=== PATIENT | female | born 1995 | race Caucasian/White ===

== ENCOUNTER 2018-09-22 09:03 | Day surgery (SDC) | payer BC, OTHER ==
[~2018-09-22 09:03] MED LIST: ACETAMINOPHEN 1,000 MG/100 ML BTL IVPB ONE; CEFAZOLIN 2 Gram 2 GM/50 ML BAG IVPB ONE
[2018-09-22] MEDS ORDERED: SEVOFLURANE 250 ML INH ONE (09:04)
[2018-09-22] MEDS ORDERED: MIDAZOLAM HCL 2MG/2ML VIAL IV ONE (09:04)
[2018-09-22] MEDS ORDERED: FENTANYL PF 100MCG/2ML VIAL IV ONE (09:04)
[2018-09-22] MEDS ORDERED: LIDOCAINE 2% MDV (20MG/ML) 20ML VIAL IV ONE (09:04)
[2018-09-22] MEDS ORDERED: DEXAMETHASONE 4 MG/ML 1ML VIAL IVP ONE ×2 (09:04)
[2018-09-22] MEDS ORDERED: HYDROMORPHONE HCL 2 MG/ML VIAL IV ONE (09:04)
[2018-09-22] MEDS ORDERED: ROPIVACAINE HCL (NAROPIN) /PF 5MG/ML 20ML VIAL IV ONE (09:04)
[2018-09-22] MEDS ORDERED: PROPOFOL 10 MG/ML VIAL IV ONE (09:04)
[2018-09-22] MEDS ORDERED: KETOROLAC 30 MG/ML VIAL IVP ONE (09:04)
[2018-09-22] MEDS ORDERED: ONDANSETRON HCL IV 4 MG/2 ML VIAL IVP ONE (09:04)
[2018-09-22 09:24] LABS: HEMATOCRIT 44.4 % (35.0-47.0); HEMOGLOBIN 14.3 gm/dl (11.6-16.0)
[2018-09-22] MEDS ORDERED: RINGERS SOLUTION,LACTATED 1,000 ML IV ONE ×2 (10:54→11:30)
[2018-09-22] MEDS ORDERED: BUPIVACAINE 0.5% W/EPI MPF 30 ML VIAL SQ ONE (11:29)
[2018-09-22] MEDS ORDERED: SODIUM CHLORIDE 0.9% IVPB ONE (13:51)
[2018-09-22] MEDS ORDERED: VANCOMYCIN HCL IVPB ONE (13:51)
--- NOTE | 2018-09-27 13:51 | Operative Note ---
DATE OF SURGERY: 09/22/2018 PREOPERATIVE DIAGNOSIS: ACL tear of left knee with an unstable knee. POSTOPERATIVE DIAGNOSIS: ACL tear of left knee with an unstable knee. OPERATION: 1. Left knee arthroscopically assisted ACL reconstruction using a bone-patella tendon-bone autograft. 2. Bone-patellar tendon-bone autograft procurement. STAFF SURGEON: Ramon Shepherd MD ANESTHESIA: General. PREPARATION: Chloraprep. INDIVIDUAL CONSIDERATIONS: None. PROCEDURE: The patient was taken to the operating room and placed supine on the operating room table. She had a successful induction of a general anesthetic. Her left lower extremity was prepped and draped in the usual fashion. Examination under anesthesia showed a 1 to 2+ pivot shift and increased excursion to Abby's. The patient had a superomedial inflow cannula placed. Skin was infiltrated with 0.5% Marcaine with epinephrine prior. The knee was then inflated with normal saline. An inferomedial and an inferolateral portal were made in a similar fashion. The arthroscope was introduced through the inferolateral portal up into the pouch. Patellofemoral joint was normal. No loose bodies were seen in the pouch or either gutter. Medially, the medial compartment structures were seen and probed and found to be normal. In the notch, the ACL was completely torn off the femur with an unstable stump. This was debrided with a shaver. The lateral compartment structures were well seen and probed and found to be normal. Using a motorized norma, a generous notchplasty was performed and the arthroscopy instruments were removed. The patient had an anterior approach to the patellar tendon, patella, and tibial tubercle. The skin was again infiltrated with 0.5% Marcaine with epinephrine. Sharp dissection carried down through skin and subcutaneous tissues. Small veins were coagulated with a Bovie. The paratenon was opened along the entire length of the incision. I measured the tendon to be between 27-30, so I elected to use a 9 mm graft knife. Using the graft knife and then 10-blade knives and then oscillating saw, bony blocks of 10-25 mm were obtained from the patella and tibial tubercle. The graft was smoothed and fashioned and tapered. Drill holes were placed for #5 TiCron passing sutures and I found that it easily would fit through a 10 mm tunnel with using the sizer. The patient had a lateral iliotibial band distally. Total length is about 4 cm. Again skin was infiltrated with 0.5% Marcaine with epinephrine prior. Sharp dissection was carried down through skin and subcutaneous tissue. Small veins were coagulated with a Bovie. The iliotibial band was opened laterally and the vastus was brought anteriorly. The lesser vessel posteriorly was debrided to bone with a Bovie. I placed the scope through the inferomedial portal. A rear entry guide passer was placed through the inferolateral portal, through the notch, and out through lateral wound. The guide was then brought into the knee, and the 1-o'clock position posteriorly was chosen just a few millimeters anterior to the most posterior position. A guide pin was drilled across, and a 10 mm tunnel was drilled. In a similar fashion using a tibial aimer, a 10 mm tunnel was drilled through the central footprint of the ACL and tibia. The [place] smoother-passer was placed through the knee and there was excellent isometry moving less than 1-2 mm. Prior to this, I did debride out the tibial tunnel of any tissue with a shaver. The graft was hooked onto the [place] smoother-passer, brought through the knee in tension. It was secured with 7 x 20 mm interference screws on either side with solid fixation into the bone. I checked the graft for impingement and it was free of the notch. The preoperative pivot shift and Abby were not stabilized. I thoroughly irrigated out the knee. The portals were closed with steve. The lateral iliotibial band was closed with running #2 quill, subcu was closed with running 2-0 plus quill, skin was closed with running 3-0 quill. In the anterior wound, the bone graft reamings were obtained and filled the patellar defect. The patellar tendon was closed with multiple running #1 Vicryl suture. Paratenon was closed with 2-0 plus Vicryl. Subcu was closed with 2-0 plus Vicryl. Skin was closed with 3-0 quill. Roughly 10 mL of 0.5% Marcaine with epinephrine along with 10 mg of morphine was injected into the knee through a sterile 18-gauge needle and a sterile bulky compressive dressing was applied. The patient tolerated procedure well. Needle and sponge counts were correct. Estimated blood loss was minimal. She was taken back to recovery in good condition. There were no complications. [id number]
== END 2018-09-22 15:18 | disposition home or self-care (01) ==
LOC: SUR 09:03
PROVIDERS: ATTEND Orthopaedic Surgery
DX: S83.32XA Tear of articular cartilage of left knee, current, initial encounter (principal); M25.362 Other instability, left knee
CPT/HCPCS: 29888; 01400; 64447; 85018; 85014; 81025; C1769; J1885; J2405; J3370; J3010; J1170; J0690; J2795; 76942; C1713; J7030; J7120